=== PATIENT | male | born 1960 ===

== ENCOUNTER → 2022-05-17 09:46 | Outpatient (CLI) | payer OTHER, SELFPAY ==
--- NOTE | ~2022-05-17 | CT_ITS ---
EXAMINATION: CT lumbar spine wo con DATE: 05/17/2022 10:07 INDICATION: Chronic low back pain. TECHNIQUE: Computed tomography (CT) of the lumbar spine was performed without intravenous contrast. A utomated exposure control and iterative reconstruction technique were employed. The dose-length produ ct was 624.07 mGy-cm. COMPARISON: None FINDINGS: There is 9 degrees levocurvature of lumbar spine. There is 3 mm retrolisthesis of L2 on L3 and 3 mm anterolisthesis of L5 on S1. There is mild chronic anterior wedging of T11, T12, and L1 vert ebral bodies. There is mildly decreased disc height at L1-L2, severely decreased disc height at L2-L3 , and moderately decreased disc height at L3-L4 and L4-L5. The following disc levels are specifically discussed: L1-L2: The disc is bulging. There is mild bilateral facet joint osteoarthritis. There is mild bilater al neural foraminal stenosis. There is mild central canal stenosis. L2-L3: The disc is bulging. There is severe bilateral facet joint osteoarthritis. There is moderate b ilateral neural foraminal stenosis. There is mild central canal stenosis. L3-L4: The disc is bulging. There is mild bilateral facet joint osteoarthritis. There is mild bilater al neural foraminal stenosis. There is mild central canal stenosis. L4-L5: The disc is bulging. There is mild bilateral facet joint osteoarthritis. There is moderate rig ht and mild left neural foraminal stenosis. There is mild central canal stenosis. L5-S1: The disc is bulging. There is severe bilateral facet joint osteoarthritis. There is mild bilat eral neural foraminal stenosis. There is mild central canal stenosis. IMPRESSION: 1. Severe lumbar spondylosis. Reviewed, dictated and finalized at location A.
== END ==
PROVIDERS: PCP Family Medicine; Visit Provider Neurological Surgery
DX: M47.896 Other spondylosis, lumbar region (principal)
CPT/HCPCS: 72131

== ENCOUNTER → 2022-07-11 15:56 | Outpatient (CLI) | payer OTHER, SELFPAY ==
--- NOTE | ~2022-07-11 | CT_ITS ---
EXAMINATION: CT diagnostic chest wo con DATE: 07/11/2022 16:14 INDICATION: Lung nodule TECHNIQUE: Computed tomography (CT) of the abdomen and pelvis was performed without intravenous contr ast. The dose-length product was 138.82 mGy-cm. Automated exposure control and iterative reconstructi on technique were employed. COMPARISON: No prior studies for comparison. FINDINGS: There are calcified granulomas in both lungs as well as calcified lymph nodes in the medias tinum. Heart size is normal. No significant pleural or pericardial abnormality. There are calcified g ranulomas of the spleen. No significant vascular abnormality. There is a right renal cyst at the uppe r pole measuring 1.9 cm. No mediastinal lymphadenopathy. No significant pleural or pericardial effusi on. There is a 7 mm nodule in the superior segment of the left lower lobe with faint peripheral calci fications. No endobronchial lesions. No pneumothorax. No focal airspace consolidation. Mild emphysema . Moderate thoracic spondylosis. IMPRESSION: 1. Left lower lobe nodule measuring 7 mm, likely benign. Follow-up low dose CT chest in 6 months trevon mmended to assess stability. Reviewed, dictated and finalized at location A. DESIGN DRAFTER IMPRESSION: 1. Left lower lobe nodule measuring 7 mm, likely benign. Follow-up low dose CT chest in 6 months recommended to assess stability.
== END ==
PROVIDERS: PCP Family Medicine; Visit Provider Student in an Organized Health Care Education/Training Program
DX: R91.1 Solitary pulmonary nodule (principal)
CPT/HCPCS: 71250